=== PATIENT | female | born 1955 | race Caucasian/White ===

== ENCOUNTER 2018-08-24 10:47 | Emergency (ER) | payer MEDICAID ==
[~2018-08-24] VITALS: Ht 165.1 cm; Wt 62.0 kg
[2018-08-24] MEDS ORDERED: HYDROCODONE/ACETAMINOPHEN 5/325MG TABLET PO ONE (11:45)
[2018-08-24] MEDS ORDERED: ONDANSETRON 4MG ODT PO ONE (11:45)
[2018-08-24 13:36] VITALS: BP 118/79
== END 2018-08-24 13:28 | disposition home or self-care (01) ==
LOC: ER 10:47
DX: R51 Headache (principal)
CPT/HCPCS: 70450; 99284; Q0162